=== PATIENT | male | born 1990 | race African-American/Black ===

== ENCOUNTER 2019-08-14 21:24 | Emergency (ER) | payer BC ==
[~2019-08-14] VITALS: Ht 185.4 cm; Wt 79.4 kg
--- NOTE | 2019-08-14 21:42 | NUR ---
ED Nurse Note: Patient in RME accpamnied by mother. Currently under review by .
--- NOTE | 2019-08-14 21:43 | Emergency Room Report ---
History of Present Illness General Chief Complaint: Upper Respiratory Illness Source: Patient Present Illness HPI This a 29-year-old male with history of anxiety. He presents with complaint of shortness of breath. He just got back from a long flight from [facility]. He has some shortness of breath. His dad who is a radiologist recommended that he come to the hospital to rule out pulmonary embolism. Patient denies any chest pain. He just felt fatigued and tired. No calf tenderness. No nausea no vomiting. Denies any other complaint. No family history of blood clots. Allergies: Coded Allergies: Philip (Verified Allergy, Severe, 08/14/19) Patient History Past Medical History: see triage record, old chart reviewed, psych hx Past Surgical History: none Pertinent Family History: none Social History: Denies: smoking Immunizations: UTD Reviewed Nursing Documentation: PMH: Agreed; PSxH: Agreed Nursing Documentation-PMH Past Medical History: No Stated History Review of Systems Eye: Denies: eye pain, blurred vision ENT: Denies: ear pain, nose congestion, throat swelling Respiratory: Reports: shortness of breath; Denies: cough Cardiovascular: Denies: chest pain, palpitations Gastrointestinal: Denies: abdominal pain, diarrhea, nausea, vomiting Musculoskeletal: Denies: back pain, joint pain Skin: Denies: rash Neurological: Denies: headache, numbness Endocrine: Denies: increased thirst, increased urine Hematologic/Lymphatic: Denies: easy bruising All Other Systems: negative except mentioned in HPI Physical Exam Vital Signs Date Time Temp Pulse Resp B/P (MAP) Pulse Ox O2 Delivery O2 Flow Rate FiO2 08/14/19 21:29 97.7 81 16 148/94 (112) 99 Room Air Vitals normal Sp02 EP Interpretation: reviewed, normal General Appearance: well appearing, no apparent distress, alert Head: normocephalic, atraumatic Eyes: bilateral eye PERRL, bilateral eye EOMI ENT: hearing grossly normal, normal pharynx Neck: full range of motion, supple, no meningismus Respiratory: chest non-tender, lungs clear, normal breath sounds Cardiovascular #1: regular rate, rhythm, no murmur Gastrointestinal: normal bowel sounds, non tender, no mass, no organomegaly, no bruit, non-distended Musculoskeletal: back normal, gait/station normal, normal range of motion Psychiatric: mood/affect normal Medical Decision Making Diagnostic Impression: Primary Impression: Dyspnea Qualified Codes: R06.00 - Dyspnea, unspecified ER Course Patient presents with dyspnea. Most likely is secondary to jet lag and anxiety. No evidence of ACS, PE, pneumonia to name a few. Last Vital Signs Date Time Temp Pulse Resp B/P (MAP) Pulse Ox O2 Delivery O2 Flow Rate FiO2 08/14/19 21:29 97.7 81 16 148/94 (112) 99 Room Air Status: improved Disposition: HOME, SELF-CARE Condition: Stable Additional Instructions: Follow-up with your doctor in 7 days. Return for any concern or if symptoms worsen. Ranjith Flores MD Aug 14, 2019 21:43
--- NOTE | 2019-08-14 22:00 | NUR ---
ED Nurse Note: Patient moved to room OB given warm blankets and pillow. IV access required and labs.
--- NOTE | 2019-08-14 22:20 | NUR ---
ED Nurse Note: IV access established labs drawn and sent to the lab. No complanints of pain. Warm blankets provided and lights dimmed as patient states he has not slept.
[2019-08-14 22:21] VITALS: BP 132/83
[2019-08-14 22:33] LABS: BASOPHILS % (AUTO) 0.8 % (0.0-2.0); EOSINOPHILS % (AUTO) 1.2 % (0.0-3.0); HEMOGLOBIN 15.5 G/DL (14.2-18.0); LYMPHOCYTES % (AUTO) 41.4 % (20.0-45.0); MEAN CORPUSCULAR VOLUME 86 FL (80-99); MONOCYTES % (AUTO) 7.4 % (1.0-10.0); NEUTROPHILS % (AUTO) 49.2 % (45.0-75.0); PLATELET COUNT 216 K/UL (150-450); RED CELL DISTRIBUTION WIDTH 10.5 % (11.6-14.8); WHITE BLOOD COUNT 5.1 K/UL (4.8-10.8)
[2019-08-14 22:40] LABS: ANION GAP 10 mmol/L (5-15); BLOOD UREA NITROGEN 15 mg/dL (7-18); CALCIUM 9.7 MG/DL (8.5-10.1); CARBON DIOXIDE 25 MMOL/L (21-32); CHLORIDE 105 MMOL/L (98-107); CREATININE 1.3 MG/DL (0.55-1.30); POTASSIUM 3.5 MMOL/L (3.5-5.1); SODIUM 140 MMOL/L (136-145)
[2019-08-14 23:20] VITALS: BP 132/83
--- NOTE | 2019-08-14 23:20 | NUR ---
ER DISCHARGE NOTE: Patient is cleared to be discharged per ERMD, pt is aox4, on room air, with stable vital signs. pt was given dc and prescription instructions, pt was able to verbalize understanding, pt id band and iv site removed without complications. pt is able to ambulate with steady gait. pt took all belongings. Discharge instructions provided both verbal and written.
== END 2019-08-14 23:20 | disposition home or self-care (01) ==
LOC: EMR 21:42
DX: R06.00 Dyspnea, unspecified (principal); Z91.018 Allergy to other foods
CPT/HCPCS: 36415; 80048; 85025; 85379; 99283